=== PATIENT | female | born 1995 | race Two or more races ===

== ENCOUNTER 2022-02-28 12:28 | Emergency (ER) | payer SELFPAY | END 2022-02-28 14:10 | disposition home or self-care (01) | LOC: JP.ED 12:28 | DX: O26.891 Other specified pregnancy related conditions, first trimester (principal); Z3A.01 Less than 8 weeks gestation of pregnancy | CPT/HCPCS: 36415; 76801; 76801-26; 76817; 76817-26; 84702; 85027; 99283 ==

== ENCOUNTER 2022-03-04 19:30 | Emergency (ER) | payer MEDICAID | END 2022-03-04 21:28 | disposition home or self-care (01) | LOC: JP.ED 19:30 | DX: O23.11 Infections of bladder in pregnancy, first trimester (principal); Z3A.01 Less than 8 weeks gestation of pregnancy | CPT/HCPCS: 36415; 81001; 84702; 85025; 99284 ==

== ENCOUNTER 2022-03-09 13:00 | Emergency (ER) | payer SELFPAY | END 2022-03-09 14:11 | disposition left against medical advice (07) | LOC: JP.ED 13:00 | DX: Z53.21 Procedure and treatment not carried out due to patient leaving prior to being seen by health care provider (principal) ==

== ENCOUNTER 2022-04-10 18:17 | Emergency (ER) | payer MEDICAID ==
[2022-04-10] MEDS ORDERED: Ondansetron 4 MG/2 ML SDV IVPUSH ONE (19:18)
[2022-04-10] MEDS ORDERED: Sodium Chloride 0.9% 10 ML Syringe FLUSH PRN (19:18)
[2022-04-10] MEDS ORDERED: Lactated Ringers 1,000 ML IV ONE (19:18)
[2022-04-10 20:03] LABS: CORONAVIRUS COVID-19 NAA NEGATIVE (NEGATIVE)
== END 2022-04-10 20:51 | disposition home or self-care (01) ==
LOC: JP.ED 18:17
DX: O21.9 Vomiting of pregnancy, unspecified (principal); Z88.1 Allergy status to other antibiotic agents; Z88.5 Allergy status to narcotic agent; Z20.822 Contact with and (suspected) exposure to COVID-19; Z3A.11 11 weeks gestation of pregnancy
CPT/HCPCS: 0241U; 81001; 96361; 96374; 99284; J2405; J7120